=== PATIENT | female | born 1995 | race Caucasian/White ===

== ENCOUNTER 2022-02-27 04:10 | Inpatient (IN) ==
[2022-02-27] MEDS ORDERED: OXYTOCIN 30 UNITS/500 ML BAG IV PRN ×3 (05:11→17:04)
[2022-02-27 06:19] LABS: Hematocrit (blood only) 39.1 % (34.1-44.9); Hemoglobin 13.5 g/dl (12.0-16.0); Mean Corpuscular Hemoglobin 31.2 pg (25.0-34.0); Mean Corpuscular Hgb Conc 34.5 g/dL (32.0-36.0); Mean Corpuscular Volume 90.3 fL (80.0-100.0); Mean Platelet Volume 11.1 fL (9.4-12.3); Platelet Count 137 K/uL (130-400); Platelet Estimate Normal (Normal); RDW Standard Deviation 42.7 fL (36.4-46.3); Red Blood Count 4.33 M/uL (3.93-5.22); White Blood Count 9.69 K/ul (4.8-10.8)
--- NOTE | 2022-02-27 06:35 | History & Physical Report ---
Date of Service February 27, 2022 Assessment & Plan (1) Supervision of normal first : Plan: Admit, labs/EFM/toco/COVID swab/IV. Pt would like to ambulate if baby looking on tracing, recommend if no increase in ctx to start pitocin. Admission and Anticipated Discharge Date Admission Date: February 27, 2022 History of Present Illness Chief Complaint: leaking fluid Primary Care Provider: NO PCP 27yo @ 40 11/08 presented after large gush of clear fluid at 3am. Some ctx, no vaginal bleeding. +FM, but was feeling it better before water broke. uncomplicated. Allergies Allergy/AdvReac Type Severity Reaction Status Date / Time No Known Allergies Allergy Verified 02/20/22 15:52 Home Medications Medication Instructions Recorded Confirmed Type prenat.vits,berta,rvy-zuhv-wpzpa 1 tab PO DAILY 07/06/21 02/20/22 History calcium carbonate 300 mg (750 mg) 300 mg PO DAILY 02/27/22 02/27/22 History chewable tablet choline 250 mg tablet mg PO DAILY 02/27/22 History dha-epa-vit A-vit W-chpilzp-MF 200 cap PO DAILY 02/27/22 02/27/22 History capsule Patient History Medical History Varicella vaccination Surgical History S/P wisdom tooth extraction Family History Grandmother (Maternal) Breast cancer Grandmother (Paternal) Breast cancer Father Leukemia Denies family history of Ovarian cancer Colorectal cancer Social History (Updated 02/27/22 @ 04:47 by Liza Delgado RN) Smoking Status: Never smoker Hx Alcohol Use: No Hx Substance Use: No Preferred Language: Swazi Communication Ability: Effective Visual Impairment: No Limitations Hearing Ability: Normal Sheet Rock Taper Required: No Beliefs That Will Affect Care: None marital status: marital status details: Sandeep Bai (31) [phone] Current Living Situation: Spouse Current Living Situation Comment: lives with spouse, no pets current occupational status: employed current occupation: [employer] Other Information That Helps Us Care for You: No Feels Safe at Home: Yes Safety Concerns: Feels Safe At This Time Dental Care, Regularly: Yes Physical Activity Frequency: 3-4 Times per Week Seatbelt Use: always Sunscreen Use: Yes Do you think of yourself as: straight/heterosexual Sexual Activity: has been sexually active within the last 12 months Gender Identity: Female Assistive Devices: None Review of Systems All systems reviewed & are unremarkable except as noted in HPI & below Physical Exam Physical Exam: T Cat 1 [place] irreg SVE fingertip/60/-2 per RN Constitutional: WD/WN, vitals as above Respiratory: normal respiratory effort, lungs clear to auscultation no respiratory distress Cardiovascular: Rate/Rhythm: regular rate and regular rhythm Gastrointestinal (Abdomen): Inspection/Auscultation: abdomen normal to inspection Percussion/Palpation: abdomen soft; abdomen nontender Gravid. No s/s chorio or abruption. Skin: no rashes, warm and dry Psychiatric: A+Ox3, euthymic affect Results & Data ([facility]) Vital Signs (Past 12 Hours) Vital Signs Temp Pulse Resp BP 02/27/22 04:28 36.7 C 80 16 109/68 02/27/22 04:39 36.7 C 16 Coding Level of Care Code None Diagnoses Supervision of normal first Z34.00
[2022-02-27] MEDS: LACTATED RINGER'S 1,000 ML IV PRN ×3 (09:00→15:54)
[2022-02-27] MEDS ORDERED: SODIUM CHLORIDE 0.9% INJ 10 ML VIAL ONE (12:03)
[2022-02-27] MEDS ORDERED: ePHEDrine sulfate 50 MG/ML AMP ONE (12:03)
[2022-02-27] MEDS ORDERED: fentaNYL citrate 100 MCG/2 ML VIAL ONE (12:03)
[2022-02-27] MEDS ORDERED: BUPIVACAINE 0.25% 30 ML VIAL ONE (12:03)
[2022-02-27] MEDS ORDERED: LIDOCAINE 2%/EPINEPHRINE 1:200,000 20 ML SDV ONE (12:03)
[2022-02-27] MEDS ORDERED: fentaNYL 2MCG/ML ROPIVACAINE 1.25MG/ML 100 ML BAG EPI ONE (12:04)
[2022-02-27] MEDS ORDERED: ONDANSETRON INJ 2 MG/ML 2 ML VIAL IV PRN (12:20)
[2022-02-27] MEDS ORDERED: fentaNYL 2MCG/ML ROPIVACAINE 1.25MG/ML 100 ML BAG EPI PRN (12:20)
[2022-02-27] MEDS ORDERED: ePHEDrine sulfate 50 MG/ML AMP IV PRN (12:20)
[2022-02-27] MEDS ORDERED: NALBUPHINE HCL INJ 10 MG/ML AMP IV PRN (12:20)
[2022-02-27] MEDS ORDERED: NALOXONE HCL 1 MG in SODIUM CHLORIDE 0.9% 1000ML 1,000 ML IV PRN (12:20)
[2022-02-27] MEDS ORDERED: NALOXONE HCL 0.4 MG/1 ML VIAL/CARP IV PRN (12:20)
[2022-02-27] MEDS ORDERED: diphenhydrAMINE 50 MG/ML VIAL IV PRN (12:20)
--- NOTE | 2022-02-27 12:23 | Anesthesiology Consultation ---
Date of Service February 27, 2022 Assessment & Plan Chart Review Chart Review: Patient NOT seen in Pre Admission Testing and Acceptable Risk for Labor Epidural Consults Requested none ASA ASA2 Proposed Anesthesia Anesthesia Type: Labor Epidural and CSE Risk / Benefits Reviewed With: PT / POA / Parent / Guardian, Accepts Plan and Informed Consent Obtained History Height/Weight Height: 5 ft 1 in Weight: 70.307 kg Allergies Allergy/AdvReac Type Severity Reaction Status Date / Time No Known Allergies Allergy Verified 02/20/22 15:52 Medications Home Medications Medication Instructions Recorded Confirmed Last Taken prenat.vits,berta,oci-wvoy-ehbzq 1 tab PO DAILY 07/06/21 02/20/22 02/05/22 calcium carbonate 300 mg (750 mg) 300 mg PO DAILY 02/27/22 02/27/22 02/26/22 19:00 chewable tablet choline 250 mg tablet mg PO DAILY 02/27/22 02/26/22 19:00 dha-epa-vit A-vit L-berlwsq-KJ 200 cap PO DAILY 02/27/22 02/27/22 02/26/22 19:00 capsule Active Medications Generic Name Dose Route Start Last Admin Trade Name Freq PRN Reason Stop Dose Admin Lactated Ringer's 1,000 mls @ 125 mls/hr 02/27/22 05:11 02/27/22 11:59 Lr IV 03/01/22 05:10 999 mls/hr .Q8H PRN Infusion L&D Protocol Protocol Oxytocin 30 units in 500 mls @ 10 mls/hr 02/27/22 05:11 02/27/22 11:00 Pitocin IV 03/01/22 05:10 0.6 units/hr .Q24H PRN 10 mls/hr Labor Induction/Augmentation Titration Protocol 0.6 UNITS/HR NPO Date Last Intake of Fluids: 02/27/22 Time Last Intake of Fluids: 12:00 Date Last Intake of Solids: 02/27/22 Time Last Intake of Solids: 05:30 Past Medical History Medical History Varicella vaccination Exercise / Class Metabolic Activity II 4-5 Yardwork/Stairs/Walk up hill Past Family History Family History Grandmother (Maternal) Breast cancer Grandmother (Paternal) Breast cancer Father Leukemia Denies family history of Ovarian cancer Colorectal cancer Past Surgical History Surgical History S/P wisdom tooth extraction Past Anesthesia History No Hx of Anesthesia Complications and No Family Hx of Anesthesia Complications History of PONV No Hx of PONV and No Hx of Motion Sickness Social History Smoking Status: Never smoker Hx Alcohol Use: No Hx Substance Use: No Review of Systems no chest pain or sob Physical Exam Vital Signs Last Vital Signs Temp 36.5 C 02/27/22 12:15 Pulse 85 02/27/22 12:18 Resp 18 02/27/22 11:15 BP 119/76 02/27/22 12:11 Pulse Ox 100 02/27/22 12:18 O2 Del Method 02/27/22 06:39 ENMT Mouth: no TMJ abnormality Thyromental Distance: > or= 3.5 Finger Breadths Mallampati Class: II Neck normal visual inspection Respiratory normal respiratory effort Auscultation: lungs clear to auscultation bilaterally Cardiovascular Rate/Rhythm: regular rate and regular rhythm Musculoskeletal Spine: normal cervical ROM Neurologic moves all extremities Psychiatric Orientation: alert and oriented x 3 Testing Laboratory Results 02/27/22 05:21
[2022-02-27] MEDS ORDERED: DIPHTHERIA/TETANUS/PERTUSSIS 0.5 ML SYR/VIAL IM ONE (17:04)
[2022-02-27] MEDS ORDERED: ACETAMINOPHEN 325 MG TAB PO PRN (17:04)
[2022-02-27] MEDS ORDERED: bisacodyL 10 MG SUPP PR PRN (17:04)
[2022-02-27] MEDS ORDERED: HYDROCORTISONE ACETATE 25 MG SUPP PR PRN (17:04)
[2022-02-27] MEDS ORDERED: BENZOCAINE 20% AER SPR 82.5 GM CAN EXT PRN (17:04)
--- NOTE | 2022-02-27 17:51 | Anesthesia Procedure Note ---
Date of Service February 27, 2022 Anesthesia Post Epidural Note Vital Signs Vital Signs: Temp Pulse Resp BP Pulse Ox O2 Del Method 36.8 C 80 18 118/63 97 02/27/22 17:00 02/27/22 17:46 02/27/22 17:45 02/27/22 17:46 02/27/22 16:43 02/27/22 06:39 Pain Intensity Bilateral Abdomen: Pain Intensity: 0 Notes Mental Status: alert / awake / arousable and participated in evaluation Nausea / Vomiting: adequately controlled Pain: adequately controlled Airway Patency, RR, SpO2: stable & adequate BP & HR: stable & adequate Hydration State: stable & adequate Neuraxial Anesthesia: was administered and sensory block is resolving Anesthetic Complications: no major complications apparent and Pt Satisfied with anesthetic care Epidural: Removed without complications and With tip intact
[2022-02-27] MEDS: DOCUSATE SODIUM 100 MG CAP PO SCH (20:40)
[2022-02-27] MEDS: IBUPROFEN 600 MG TAB PO PRN (20:40)
--- NOTE | 2022-02-27 21:27 | Delivery Summary ---
DATE OF SERVICE: 02/27/2022 PROCEDURE: Normal spontaneous vaginal delivery with first-degree perineal laceration repair. SURGEON: Mustapha Burgos MD. PREOPERATIVE DIAGNOSES: 1. Single intrauterine at 40 weeks 4 days gestational age. 2. Spontaneous rupture of membranes. POSTOPERATIVE DIAGNOSES: 1. Single intrauterine at 40 weeks 4 days gestational age. 2. Spontaneous rupture of membranes. 3. Status post procedure. ESTIMATED BLOOD LOSS: 200 mL. DRAINS: None. FLUIDS: Continuous lactated Ringer. URINE OUTPUT: Straight cath at the completion of the case. COMPLICATIONS: None. FINDINGS: Viable female with weight and Apgars pending. INDICATIONS: Ness is a 27-year-old , at 40 weeks 4 days gestational age, presented with spo ntaneous rupture of membranes. At initial evaluation, the patient was found to be 0.5 cm dilated, 60 % effaced, negative 2 station. The patient initially opted for expectant management, but no contract ions were noted to be present. The patient was later started on oxytocin per regular protocol. Oxyt ocin was discontinued secondary to bradycardia episode with spontaneous recovery and continued to progress unaugmented to complete-complete, +2 station, at which time she felt the urge to push and pushed to achieve delivery. DESCRIPTION OF PROCEDURE: The patient progressed to 10 cm dilated, 100% effaced, positive 2 station, pushed over intact perineum with epidural anesthesia, delivered a viable female with weight a nd Apgars as noted above. Head of the delivered in SHARONA position, restituted to right transve rse. No nuchal cord was noted. Body and shoulders quickly followed. was noted to be vigoro us soon after delivery and 1 minute delayed cord clamping was initiated. Cord was then double clampe d and cut. remained on maternal abdomen. Cord blood was obtained. Attention was then turne d to delivery of placenta, which was delivered intact, 3-vessel cord, gentle cord traction. On inspe ction of the perineum, vagina, cervix, there was noted to be a first-degree perineal laceration, whic h was repaired with 3-0 Vicryl in continuous running stitch. Needle, sponge, and instrument counts w ere correct at the completion of the case. Both mother and stable in the immediate post-deli very period. Job ID: [id number]
--- NOTE | 2022-02-28 06:56 | Obstetrical Progress Note ---
Date of Service <Betty Conrad DO - Last Filed: 02/28/22 06:55> February 28, 2022 Assessment & Plan <Betty KarenWilber DO [place] - Last Filed: 02/28/22 06:55> (1) : Patient is PPD day 1 s/p and doing well. - Feels well today. Eating well, voiding well, ambulating well - Pain well controlled with ibuprofen 600 mg Q4H PRN - OOB, ambulation, diet progression as tolerated - Plan to discharge tomorrow - After discharge, 6 week follow up with <Mustapha Burgos MD - Last Filed: 02/28/22 08:14> (1) : Subjective <Betty KarenWilber DO [place] - Last Filed: 02/28/22 06:55> Tom Bai is a 27 yo female who is now PPD #1 following spontaneous vaginal delivery at 39 weeks. Reports feeling well this morning. Endorses abdominal cramping and 3-4/10 pain well managed on analgesics. Voiding without issue. Tolerating meals overnight and able to ambulate some. Endorses passing gas and normal bowel movements. Some persistent lochia with some improvement this morning. She denies lots of clots or gushes of blood. Currently breast feeding. Review of Systems Denies fever, chills, sweats. Denies SOB, difficulty breathing, chest pain, palpitations, and chest pressure. Denies breast pain. Denies dysuria. Denies headache or changes in vision. Physical Exam <Betty Conrad DO - Last Filed: 02/28/22 06:55> General: Alert and oriented. No acute distress. CV: Regular rate and rhythm. No murmurs. Respiratory: CTA bilaterally. No rhonchi, wheezes, or crackles. No increased work of breathing. Abdomen: Positive bowel sounds. Soft, nontender, non distended. Uterus: Fundus firm and palpable 2 cm below the umbilicus. Lower extremities: Slight, 1+ pitting edema in bilateral feet. No deep calf pain. Rebeca's negative bilaterally. Results & Data ([facility]) <Betty Conrad DO - Last Filed: 02/28/22 06:55> Vital Signs (Past 12 Hours) Vital Signs Temp Pulse Pulse Resp BP BP 02/28/22 04:00 36.7 C 83 16 118/75 02/28/22 00:00 36.9 C 82 16 110/66 02/27/22 20:00 36.7 C 107 H 18 124/72 02/27/22 19:00 36.7 C 18 02/27/22 18:57 103 H 134/76 <Mustapha Burgos MD - Last Filed: 02/28/22 08:14> Co-Signing Physician Notes Patient seen and evaluated with resident and agree with the above findings and plan. Routine care Resident Activity Tracking <Betty Conrad DO - Last Filed: 02/28/22 06:55> Resident Involvement: Resident Care Provided Care Provided: OB Delivery
[2022-02-28] MEDS: DOCUSATE SODIUM 100 MG CAP PO SCH ×2 (07:59→20:39)
[2022-02-28] MEDS: IBUPROFEN 600 MG TAB PO PRN ×3 (07:59→18:34)
[2022-02-28] MEDS: FERROUS SULFATE 325 MG TAB PO SCH (08:00)
[2022-02-28] MEDS: PRENATAL VITAMIN 1 TAB PO SCH (08:00)
[2022-02-28] MEDS ORDERED: bisacodyL 5 MG TABEC PO SCH (20:00)
[2022-03-01] MEDS: IBUPROFEN 600 MG TAB PO PRN ×2 (02:06→09:28)
--- NOTE | 2022-03-01 05:51 | Obstetrical Progress Note ---
Date of Service <Betty Conrad DO - Last Filed: 03/01/22 06:33> March 01, 2022 Assessment & Plan <Betty Bill Conrad DO - Last Filed: 03/01/22 06:33> (1) : Patient is PPD 2 s/p and doing well. - Feels well today. Eating well, voiding well, ambulating well - Pain well controlled - OOB, ambulation, diet progression as tolerated - Plan to discharge today - After discharge, 6 week follow up with Dr. Burgos <Katia Hidalgo MD, FACOG - Last Filed: 03/01/22 07:31> (1) : Day #:: 2 Subjective <Betty JonesWilber DO [place] - Last Filed: 03/01/22 06:33> Tom Bai is a 27 yo female who is now PPD #2 following spontaneous vaginal delivery at 40 weeks. Reports feeling well this morning. Denies abdominal cramping and 0/10 pain well managed without analgesics. Voiding well. She explains that she finds it difficult to feel the urge to urinate but when she urinates she denies burning or trouble with starting/stopping her stream. Tolerating meals overnight and able to ambulate some. Passing gas and normal bowel movements. Some persistent lochia with much improvement this morning. Currently breast feeding. Review of Systems Denies fever, chills, sweats. Denies SOB, difficulty breathing, chest pain, palpitations, and chest pressure. Denies breast pain. Denies dysuria. Denies headache or changes in vision. Physical Exam <Betty Conrad DO - Last Filed: 03/01/22 06:33> General: Alert and oriented. No acute distress. CV: Regular rate and rhythm. No murmurs. Respiratory: CTA bilaterally. No rhonchi, wheezes, or crackles. No increased work of breathing. Abdomen: Positive bowel sounds. Soft, nontender, non distended. Uterus: Fundus firm and palpable 3 cm below the umbilicus. Lower extremities: 1+ pitting edema in right foot greater than left foot. Similar to previous day. No deep calf pain. Rebeca's negative bilaterally. Results & Data ([facility]) <Betty Conrad DO - Last Filed: 03/01/22 06:33> Vital Signs (Past 12 Hours) Vital Signs Temp Pulse Resp BP 03/01/22 00:00 36.8 C 76 16 117/75 02/28/22 20:00 36.7 C 91 H 16 103/76 <Katia Hidalgo MD, FACOG - Last Filed: 03/01/22 07:31> Co-Signing Physician Notes Resident Physician Supervision Note: I was present with Dr. Conrad during the history and exam. I discussed the case with the resident and agree with the findings and plan as documented in the note. Any exceptions or clarifications are listed here: stable, ready to go home, eating, voiding and ambulating. abd soft ff 2 down nt, ext nt calves, +1 edema. ppd#2, instructions reviewed, f/u 6wk pp check. breast/rh pos/ri. Documented By: Katia Hidalgo MD, FACOG Resident Activity Tracking <Betty Conrad DO - Last Filed: 03/01/22 06:33> Resident Involvement: Resident Care Provided Care Provided: OB Delivery
[2022-03-01] MEDS: FERROUS SULFATE 325 MG TAB PO SCH (09:29)
[2022-03-01] MEDS: DOCUSATE SODIUM 100 MG CAP PO SCH (09:29)
[2022-03-01] MEDS: PRENATAL VITAMIN 1 TAB PO SCH (09:29)
== END 2022-03-01 13:31 | disposition home or self-care (01) | DRG 807 ==
LOC: OPB 04:10 → 4S1 04:13 → 4E2 19:31
DX: Z3A.40 40 weeks gestation of pregnancy; O70.0 First degree perineal laceration during delivery; Z79.899 Other long term (current) drug therapy; O42.02 Full-term premature rupture of membranes, onset of labor within 24 hours of rupture; O76 Abnormality in fetal heart rate and rhythm complicating labor and delivery; Z37.0 Single live birth